=== PATIENT | female | born 1950 | race Caucasian/White ===

== ENCOUNTER 2016-12-08 05:50 | Day surgery (SDC) | payer MEDICARE, BC ==
[~2016-12-08] VITALS: Ht 162.6 cm; Wt 73.5 kg
[~2016-12-08 05:50] MED LIST: LEVOTHYROXIN75 MCG PO; LIVALO PO; NO MEDS; OMEPRAZOLE20.6 MGDR PO; ZESTRIL10 M1 PO
[2016-12-08] MEDS ORDERED: LORTAB 5/3255 MG PO (09:18)
[2016-12-08 09:51] VITALS: BP 133/60
== END 2016-12-08 09:40 | disposition home or self-care (01) ==
LOC: ORM 05:50
PROVIDERS: ATTEND Surgery
PROC: 0FT44ZZ Resection of Gallbladder, Percutaneous Endoscopic Approach (ICD-10-PCS; principal; 2016-12-08)
DX: K80.10 Calculus of gallbladder with chronic cholecystitis without obstruction (principal); I10 Essential (primary) hypertension; E78.00 Pure hypercholesterolemia, unspecified; E03.9 Hypothyroidism, unspecified
CPT/HCPCS: J2710; Q9967

== ENCOUNTER 2017-08-03 06:20 | Day surgery (SDC) | payer MEDICARE, BC ==
[~2017-08-03] VITALS: Ht 162.6 cm; Wt 77.1 kg
[~2017-08-03 06:20] MED LIST changes: +LORTAB 5/3255 MG PO; -OMEPRAZOLE20.6 MGDR PO; +VITAMIN C500 M6 PO; +[UNRECOGNIZED DRUG - OTHER] PO
[2017-08-03 11:04] VITALS: BP 139/72
== END 2017-08-03 08:50 | disposition home or self-care (01) ==
LOC: ENDO 06:20
PROVIDERS: ATTEND Surgery
PROC: 0DJD8ZZ Inspection of Lower Intestinal Tract, Via Natural or Artificial Opening Endoscopic (ICD-10-PCS; principal; 2017-08-03)
DX: Z12.11 Encounter for screening for malignant neoplasm of colon (principal); K57.30 Diverticulosis of large intestine without perforation or abscess without bleeding; I10 Essential (primary) hypertension; E78.00 Pure hypercholesterolemia, unspecified
CPT/HCPCS: G0121

== ENCOUNTER 2018-08-17 23:51 | Emergency (ER) | payer MEDICARE ==
[~2018-08-17] VITALS: Ht 162.6 cm; Wt 81.8 kg
[2018-08-18] MEDS ORDERED: CODEINE/GUAIFEN1 SOL PO (01:54)
[2018-08-18] MEDS ORDERED: IBUPROFEN600 MG PO (01:54)
[2018-08-18 02:00] VITALS: BP 159/74
== END 2018-08-18 02:00 | disposition home or self-care (01) ==
LOC: ED 23:51
DX: R07.89 Other chest pain (principal); R05 Cough; R06.02 Shortness of breath